=== PATIENT | male | born 1985 | race Caucasian/White ===

== ENCOUNTER 2018-07-21 09:16 | Emergency (ER) | payer OTHER, SELFPAY ==
[2018-07-21 09:26] VITALS: BP 110/69; PULSE 75; RESP 14; TEMP 36.7; O2SAT 99
[2018-07-21 09:48] LABS: Bacteria Urine None Seen; RBC Urine None Seen (0-5/HPF); WBC Urine None Seen (0-5/HPF)
[2018-07-21 10:02] LABS: Amorphous Sediment Urine 2+; Culture Indicated Urine Cult Not Indicated
[2018-07-21 10:08] LABS: Influenza A and B by PCR Rapid Negative (Negative)
--- NOTE | 2018-07-21 10:28 | ED.URI ---
HPI - URI/Sore Throat General Chief Complaint: Upper Respiratory Symptoms Stated Complaint: MAY HAVE CAUGHT FLU Time Seen by Provider: 07/21/18 10:20 Source: patient Mode of arrival: ambulatory Limitations: no limitations History of Present Illness HPI Narrative: This is a 33-year-old male who comes to the emergency department with complaint of upper respiratory congestion, a little bit of nausea and lower back pain patient states that he has had any documented fevers. He has felt maybe a little warm but nothing clearly. He has not had any shortness of breath or chest pain or pressure. He has been coughing up some sort a yellow stuff but states some of it may be from the upper nose area. He has had a little bit of sinus pressure but no pain. He has not had any vomiting but felt slightly nauseated. No other diarrhea or constipation. No urinary symptoms no frequency dysuria or urgency. Patient has some mild low back pain. Does not states he has had any injuries. It does not radiate any where no loss of bowel or bladder control. Patient states he is otherwise healthy he has had ankle surgery in the past for repair he does not smoke. He drinks alcohol occasionally, no IV drugs or other illicit substances. His primary care is through the [facility]. Related Data Home Medications Medication Instructions Recorded Confirmed No Known Home Medications 07/21/18 07/21/18 Allergies Allergy/AdvReac Type Severity Reaction Status Date / Time No Known Drug Allergies Allergy Verified 07/21/18 09:29 Review of Systems Review of Systems ROS Unobtainable: All systems reviewed & are unremarkable except as noted in HPI and below Constitutional Denies chills, Denies fever(s) and Reports malaise ENT Ears, Nose, Mouth, and Throat: Denies change in voice, Reports nasal congestion, Reports nasal discharge ( Yellowish), Denies neck pain, Denies sinus pain, Reports sinus pressure and Denies sore throat Cardiovascular Denies chest pain, Denies diaphoresis, Denies irregular heart rhythm, Denies lightheadedness, Denies palpitations, Denies dyspnea, Denies dyspnea on exertion and Denies orthopnea Respiratory Denies chest congestion, Reports cough, Denies hemoptysis, Reports excessive phlegm production ( yellowish), Denies pain on inspiration, Denies pain with cough, Denies dyspnea, Denies dyspnea on exertion and Denies wheezing Gastrointestinal Gastrointestinal: Denies abdominal pain, Denies change in bowel habits, Denies diarrhea, Reports nausea and Denies vomiting Genitourinary Denies hematuria, Denies difficulty urinating, Denies dysuria, Denies flank pain, Denies urinary incontinence and Denies urinary urgency Musculoskeletal Reports back pain, Denies neck pain, Denies numbness, Denies radiating pain into limb and Denies tingling Integumentary/Breasts Denies rash Neurologic Denies numbness and Denies tingling Endocrine Denies palpitations Allergic/Immunologic Denies wheezing PFSH Surgical History History of ankle surgery (Acute) Social History Smoking Status: Never smoker alcohol intake: current substance use type: does not use Social History Smoking Status: Never smoker alcohol intake: current substance use type: does not use Exam Narrative Exam Narrative: GEN: well nourished, well appearing male, alert and oriented x 3], patient appears to be in no acute distress. HEENT: Atraumatic, pupils are equal round reactive to light, extraocular movements are intact, mild clear rhinorrhea bilateral, TMs are clear with no fluid, there is no conjunctival pallor. Throat is clear without any exudates, erythema, tonsillar enlargement or uvular deviation, no sinus tenderness. , no meningeal signs. Mild anterior cervical lymphadenopathy bilaterally. HEART: Regular rate and rhythm without murmur, clicks, rubs. LUNGS:Lungs clear to auscultation, no wheezes, rales, crackles, chest moves symmetrically ABD:bowel sounds normal, soft, non-tender, no guarding, rebound, rigidity, no masses noted, no hepatosplenomegaly :No CVA tenderness, [male/female exam] MSCL: Non-tender, no muscle atrophy, muscles strength 5/5 upper and lower extremities, full range of motion, normal gait NEURO:CN 2-12 intact, sensation normal Initial Vital Signs Initial Vital Signs: Vital Signs Temperature 98.1 F 07/21/18 09:26 Pulse Rate 75 07/21/18 09:26 Respiratory Rate 14 07/21/18 09:26 Blood Pressure 110/69 07/21/18 09:26 Pulse Oximetry 99 07/21/18 09:26 Course Orders Ordered: ED Orders 07/21/18 09:46 Influenza A and B by PCR Rapid Stat Urine Microscopic Stat Discontinued Medications Ibuprofen (Advil) 400 mg PO NOW ONE Stop: 07/21/18 10:21 Last Admin: 07/21/18 10:38 Dose: 400 mg Vital Signs - 8 hr 07/21/18 09:26 07/21/18 10:40 Temperature 98.1 F Pulse Rate 75 70 Respiratory Rate 14 16 Blood Pressure 110/69 Blood Pressure [Left Arm] 122/70 Pulse Oximetry 99 98 MDM - URI/Sore Throat Lab Data Attestation: I reviewed the patient's lab results. Lab Results 07/21/18 07/21/18 Range/Units 09:46 09:46 Urine RBC None seen (0-5/HPF) Urine WBC None seen (0-5/HPF) Amorphous Sediment 2+ Urine Bacteria None seen (None) Ur Culture Indicated? Cult not indicated Influenza A & B (PCR) Negative (Negative) Urine Dip Bedside Urine Glucose Negative Bedside Urine Bilirubin - Negative Bedside Urine Ketone - Negative Urine Specific [place] 1.015 Bedside Urine Occult Blood +/- Bedside Urine pH 6.0 Bedside Urine Protein - Negative Bedside Urine Urobilinogen - Negative Bedside Urine Nitrite - Negative Bedside Urine Leukocytes - Negative Esterase MDM Narrative Medical decision making narrative: Discussed with patient I suspect this is more upper respiratory infection. Unclear if the back pain is related or not. He had a small amount of blood in his urine but no other changes. Discharge Plan Departure Patient Disposition: Home Clinical Impression: URI (upper respiratory infection) Discharge Date/Time: 07/21/18 10:43 Interventions: ED Discharge Assessment Last Done: 07/21/18 10:43 Instructions: DI for Viral Upper Respiratory Infection -- Adult Activity Restrictions/Additional Instructions: Follow-up with her primary care physician if her symptoms are not improving in the next 10 days. Your urine today did show a small amount of blood. Your primary care should recheck this in the next 1-2 weeks for recheck to make sure it has resolved. Continue ibuprofen and/or Tylenol for fever and/or muscle aches. Return to the ER for persistent fevers that do not respond ibuprofen or Tylenol new chest, shortness of breath, new or severe back pain, burning with urination, urgency, incontinence or testicular pain, Persistent vomiting or black or bloody stools. Prescriptions: No Action No Known Home Medications RF: 0
[2018-07-21] MEDS: IBUPROFEN 400 MG TABLET PO (10:38)
[2018-07-21 10:40] VITALS: BP 122/70; PULSE 70; RESP 16; O2SAT 98
== END 2018-07-21 10:43 | disposition home or self-care (01) ==
PROVIDERS: Emergency Provider Emergency Medicine
DX: J06.9 Acute upper respiratory infection, unspecified (principal)
CPT/HCPCS: 81003; 81015; 87400; 99282; 99283

== ENCOUNTER → 2021-11-06 08:47 | Outpatient (CLI) | payer OTHER, SELFPAY ==
--- NOTE | 2021-11-06 | DI.MRI.S_ITS ---
PROCEDURE: MR SHOULDER RT W CON INDICATIONS: Pain in right shoulder TECHNIQUE: After the administration of 12 mL of dilute intra-articular Gadolinium contrast, oblique coronal T1 and T2 spin echo with fat saturation, oblique sagittal T1 spin echo with and without fat saturation, oblique sagittal T2 fast spin echo with fat saturation, axial T1 spin echo with fat saturation through the shoulder. COMPARISON: [facility], , [place] SHOULDER INJECTION MR/CT RT, 11/06/2021, 9:04. FINDINGS: Image quality: Excellent. Rotator cuff: There is moderate tendinosis of the supraspinatus, infraspinatus and subscapularis tendons. Partial-thickness articular surface tear is noted of the supraspinatus and infraspinatus tendons. Possible pinhole full-thickness tear of the subscapularis tendon involving the superior fibers. No rotator cuff muscle atrophy on sagittal images. Bones and bursae: No bone marrow contusions or fractures. Mild acromioclavicular joint degeneration. The acromion demonstrates conventional anatomy, without an os acromiale. Capsule and soft tissues: There is SLAP tear of the superior labrum at the 12 o'clock position. The glenohumeral ligaments appear intact. The long head of the biceps tendon demonstrates normal location and morphology. The rotator interval appears normal, without fibrosis. The coracohumeral ligament is of normal thickness. No intra-articular bodies. IMPRESSION: 1. Tendinosis of the supraspinatus, infraspinatus subscapularis tendons. There is partial-thickness tear of the supraspinatus and infraspinatus tendons involving the articular surface and possible pinhole full-thickness tear of the superior fibers of the subscapularis tendon. 2. Mild acromioclavicular joint degeneration. 3. SLAP tear of the superior labrum. Dictated by: Georgia Aleman M.D. on 11/06/2021 at 12:47 Approved by: Georgia Aleman M.D. on 11/06/2021 at 13:04
--- NOTE | 2021-11-06 | DI.RAD.S_ITS ---
PROCEDURE: [place] SHOULDER INJECTION MR/CT RT INDICATIONS: Pain in right shoulder COMPARISON: None. TECHNIQUE: The indications, alternatives, benefits, risks, and complications of the procedure were explained to the patient. Written informed consent was obtained and placed in the chart. The shoulder was examined fluoroscopically and a site for needle placement chosen for entry into the glenohumeral joint from an anterior approach. The skin was prepped and draped in a sterile fashion, and 1% lidocaine infiltrated from skin down to joint capsule. A spinal needle was inserted into the glenohumeral joint, and a small amount of iodinated contrast media injected to confirm intra-articular placement of the needle tip. This was followed by approximately 12 mL dilute solution of a gadolinium containing MR contrast agent. The needle was removed and a dressing was applied. The patient was given postprocedural instructions and sent to the MR suite for MR imaging. FINDINGS: A single fluoroscopic spot image demonstrates intra-articular location of injected iodinated contrast. IMPRESSION: Successful fluoroscopically guided administration of dilute Gadolinium solution into the shoulder joint for MR arthrogram. Dictated by: Lorraine Padron MD, PhD on 11/06/2021 at 10:24 Approved by: Lorraine Padron MD, PhD on 11/06/2021 at 10:24
== END ==
DX: M75.111 Incomplete rotator cuff tear or rupture of right shoulder, not specified as traumatic (principal); S43.431A Superior glenoid labrum lesion of right shoulder, initial encounter; M19.011 Primary osteoarthritis, right shoulder; M25.511 Pain in right shoulder
CPT/HCPCS: 23350; 73222; 77002